=== PATIENT | female | born 1955 | race Caucasian/White ===

== ENCOUNTER 2016-08-16 15:08 | Emergency (ER) | payer MEDICARE, OTHER ==
[2016-08-16 15:38] VITALS: BP 184/85
--- NOTE | 2016-08-16 16:45 | RAD ---
INDICATION: Left shoulder pain COMPARISON: None TECHNIQUE: AP, lateral, and oblique views were obtained. FINDINGS: The bony structures, joint spaces, and soft tissues are normal for age. IMPRESSION: NEGATIVE EXAMINATION
--- NOTE | 2016-08-16 16:46 | RAD ---
INDICATION: Left forearm injury COMPARISON: None TECHNIQUE: AP, lateral, and oblique views were obtained. FINDINGS: The bony structures, joint spaces, and soft tissues are normal for age. IMPRESSION: NEGATIVE EXAMINATION.
--- NOTE | 2016-08-16 16:46 | RAD ---
INDICATION: Left elbow injury COMPARISON: None TECHNIQUE: AP, lateral, and oblique views were obtained. FINDINGS: The bony structures, joint spaces, and soft tissues are normal for age. IMPRESSION: NEGATIVE EXAMINATION.
[2016-08-16] MEDS ORDERED: Cyclobenzaprine TAB* 10 MG PO ONE (17:48)
--- NOTE | 2016-08-16 20:46 | UC ---
Kolton Oliver Michael, scribed for Maryellen Macias MD on 08/16/16 at 1608 . Upper Extremity HPI - HPI Summary HPI Summary: 60 y/o female comes to [facility] after a mechanical fall on ice today at 1430. The pt reports to falling directly on her left elbow with immediate on set of pain. Currently, she has maximum pain in her left shoulder and describes the pain as an 8 out of 10. The pt also c/o LUE pain (elbow/forearm), ecchymosis on the left elbow, back pain, and left chest wall pain. She denies head trauma and neck pain. The PMHx is significant for HTN, DM, and thyroid disease. - History of Current Complaint Chief Complaint: UCUpperExtremity Stated Complaint: ARM INJURY Hx Obtained From: Patient, Family/Mock Up Builder, Medical Records Onset/Duration: Sudden Onset, Lasting Hours, Still Present Severity Initially: Moderate Severity Currently: Moderate Pain Intensity: 8 Pain Scale Used: 0-10 Numeric Location Of Pain: Is Discrete @ - left shoulder and LUE Character: Aching Aggravating Factor(s): Movement Alleviating Factor(s): Nothing Associated Signs And Symptoms: Positive: Negative - neck pain. head trauma., Bruising - left elbow. back pain. chest wall pain.. Negative: Fever Related History: Dominant Hand Right - Allergies/Home Medications Allergies/Adverse Reactions: Allergies Allergy/AdvReac Type Severity Reaction Status Date / Time Erythromycin Allergy Severe Hives Verified 11/02/14 17:18 Penicillins Allergy Severe Itching Verified 11/02/14 17:18 PMH/Surg Hx/FS Hx/Imm Hx Endocrine History Of: Reports: Diabetes, Thyroid Disease Cardiovascular History Of: Reports: Hypertension Respiratory History Of: Reports: Asthma - Surgical History Surgical History: Yes Surgery Procedure, Year, and Place: blocked instestine repair. tubal. left eye muscle. tumor removal left foot arch. Left second finger- tendon repair. right shoulder scopy. Left breast lobectomy - Family History Known Family History: Positive: Hypertension - Social History Lives: With Family Alcohol Use: Rare Substance Use Type: None Smoking Status (MU): Former Smoker Type: Cigarettes Length of Time of Smoking/Using Tobacco: 20 years Have You Smoked in the Last Year: No When Did the Patient Quit Smoking/Using Tobacco: 1994 Review of Systems Constitutional: Negative - fever Skin: Bruising - left forearm Respiratory: Negative Cardiovascular: Chest Pain - ant chest wall pain Musculoskeletal: Other: - positive: left shoulder pain. LUE pain. upper back pain. chest wall pain. Negative: neck pain. head trauma. Neurological: Negative Psychological: Negative All Other Systems Reviewed And Are Negative: Yes Physical Exam Triage Information Reviewed: Yes Appearance: Well-Appearing, Well-Nourished, Pain Distress Vital Signs: Initial Vital Signs Temp 98.8 F 08/16/16 15:28 Pulse 88 08/16/16 15:28 Resp 16 08/16/16 15:28 BP 184/85 08/16/16 15:28 Pulse Ox 100 08/16/16 15:28 Elevated blood pressure noted. Vital Signs Reviewed: Yes Eyes: Positive: Conjunctiva Clear ENT: Positive: Normal ENT inspection Neck: Positive: Supple, Nontender Respiratory: Positive: Lungs clear, Normal breath sounds, No respiratory distress, Other: - no crepitus, no bruising, no bony tenderness of ribs Cardiovascular: Positive: RRR, No Murmur, Pulses Normal, Brisk Capillary Refill Abdomen Description: Positive: Nontender, No Organomegaly, Soft. Negative: CVA Tenderness (R), CVA Tenderness (L), McBurney's Point Tenderness, Peritoneal Signs Musculoskeletal: Positive: ROM Intact, Other: - rib tenderness with no crepitus or ecchymosis. no bony tenderness of elbow Neurological: Positive: Alert, Muscle Tone Normal Psychological Exam: Normal Skin: Positive: Other - 5 cm purple ecchymosis on the left proximal forearm Diagnostics - Radiology Left [place] XR Xray Interpretation: No Acute Changes Radiology Interpretation Completed By: Radiologist Left shoulder XR Xray Interpretation: No Acute Changes Radiology Interpretation Completed By: Radiologist Left forearm XR Xray Interpretation: No Acute Changes Radiology Interpretation Completed By: Radiologist Upper Extremity Course/Dx - Course Course Of Treatment: consulting pt about XR results and plan of care. - Differential Dx/Diagnosis Differential Diagnosis/HQI/PQRI: Fracture (Closed), Hematoma, Strain, Sprain Provider Diagnoses: poorly controlled hypertension. shoulder strain. mechanical fall. rib contusion. Discharge - Discharge Plan Condition: Improved Disposition: HOME Prescriptions: Cyclobenzaprine TAB* [Flexeril TAB*] 10 mg PO TID PRN #20 tab PRN Reason: Pain Patient Education Materials: Shoulder Pain (ED) Referrals: Kenyatta Rahman MD [Medical Doctor] - Additional Instructions: You will follow up with Dr. Rahman-Orthopedics within the next 2 days if no improvement. RETURN TO URGENT CARE FOR ANY NEW OR WORSENING SYMPTOMS The documentation as recorded by the Kolton jaquez Michael accurately reflects the service I personally performed and the decisions made by me, Maryellen Macias MD.
== END 2016-08-16 17:12 | disposition home or self-care (01) ==
LOC: UCEAST 15:08
DX: S46.912A Strain of unspecified muscle, fascia and tendon at shoulder and upper arm level, left arm, initial encounter (principal); S20.212A Contusion of left front wall of thorax, initial encounter; W00.0XXA Fall on same level due to ice and snow, initial encounter; Y93.9 Activity, unspecified; Y92.9 Unspecified place or not applicable; I10 Essential (primary) hypertension; Z88.1 Allergy status to other antibiotic agents; Z88.0 Allergy status to penicillin; Z87.891 Personal history of nicotine dependence
CPT/HCPCS: 99213; A9270-GY; G0463

== ENCOUNTER 2018-05-24 09:55 | Day surgery (SDC) | payer MEDICARE, OTHER ==
[~2018-05-24 09:55] MED LIST: Buffered Lidocaine 0.9% SYRIN* 5 ML/SYR SYRINGE INTRADERM ONE
[2018-05-24] MEDS ORDERED: Buffered Lidocaine 0.9% SYRIN* 5 ML/SYR SYRINGE ONE (10:04)
[2018-05-24] MEDS ORDERED: Clindamycin 900 MG/D5W BAG(*) 900 MG/50 ML BAG IVPB ONE (10:04)
[2018-05-24] MEDS ORDERED: Propofol* 10 MG/ML 20 ML BTL IV PUSH ONE (12:22)
[2018-05-24] MEDS ORDERED: Midazolam* 1 MG/ML 2 ML VIAL (2 MG) ONE (12:27)
[2018-05-24] MEDS ORDERED: Lidocain 1% EPI 1:100,000 * 30 ML MDV ONE (12:31)
[2018-05-24] MEDS ORDERED: Metoprolol Tartrate IV* 1 MG/ML 5 ML VIAL ONE (12:40)
[2018-05-24] MEDS ORDERED: Lidocaine 2% PF * 5 ML VIAL ONE (12:46)
[2018-05-24 13:14] VITALS: BP 137/63
== END 2018-05-24 13:20 | disposition home or self-care (01) ==
LOC: OR 09:55
PROVIDERS: ATTEND Plastic Surgery
DX: D17.0 Benign lipomatous neoplasm of skin and subcutaneous tissue of head, face and neck (principal); E11.9 Type 2 diabetes mellitus without complications; Z79.84 Long term (current) use of oral hypoglycemic drugs; Z79.4 Long term (current) use of insulin; E78.00 Pure hypercholesterolemia, unspecified; I11.9 Hypertensive heart disease without heart failure; E03.9 Hypothyroidism, unspecified
CPT/HCPCS: 88304; J2250; J2704; J3490